=== PATIENT | male | born 1950 | race Caucasian/White ===

== ENCOUNTER 2017-10-13 11:54 | Day surgery (SDC) | payer MEDICARE, OTHER ==
[~2017-10-13] VITALS: Ht 177.8 cm; Wt 79.5 kg
[2017-10-13 12:10] VITALS: BP 142/107
[2017-10-13] MEDS ORDERED: ZOLP10TA PO (12:10)
[2017-10-13] MEDS ORDERED: LORA0.5T PO (12:12)
[2017-10-13] MEDS ORDERED: HYDR-89 PO (12:12)
[2017-10-13] MEDS ORDERED: fentaNYL/PF 50MCG/1 ML 2ML syringe ONE (12:39)
[2017-10-13] MEDS ORDERED: midazolam 2 mg/2 ml injection ONE (12:39)
[2017-10-13 12:57] VITALS: BP 131/86
[2017-10-13] MEDS ORDERED: ringers solution, lacted 1,000 ML IV SCH (13:05)
[2017-10-13] MEDS ORDERED: meperidine/PF 25mg/ml syringe IV PRN ×3 (13:05)
[2017-10-13] MEDS ORDERED: morphine 4 MG/ML inj SYRINge IV PRN ×2 (13:05)
[2017-10-13] MEDS ORDERED: proCHLORperazine 10 MG/2 ml inj IV PRN (13:05)
[2017-10-13] MEDS ORDERED: ondansetron/PF 4mg/2ml inj IV PRN (13:05)
[2017-10-13 13:07] VITALS: BP 122/85
[2017-10-13 13:17] VITALS: BP 144/89
[2017-10-13 13:27] VITALS: BP 131/91
== END 2017-10-13 13:30 | disposition home or self-care (01) ==
LOC: GI LAB 11:54
PROVIDERS: ATTEND Internal Medicine Gastroenterology
DX: K22.70 Barrett's esophagus without dysplasia (principal); K21.0 Gastro-esophageal reflux disease with esophagitis; F41.9 Anxiety disorder, unspecified; K44.9 Diaphragmatic hernia without obstruction or gangrene; Z88.8 Allergy status to other drugs, medicaments and biological substances; Z79.899 Other long term (current) drug therapy
CPT/HCPCS: 43239; J2250; J3010; J7030; A4620; J7120